=== PATIENT | female | born 1985 | race Caucasian/White ===

== ENCOUNTER 2021-09-20 22:25 | Emergency (ER) | payer MEDICAID ==
[2021-09-20] MEDS ORDERED: Clindamycin 150 MG CAP ONE (23:29)
[2021-09-21] MEDS ORDERED: Ibuprofen 800 MG TAB ONE (00:05)
[2021-09-21] MEDS ORDERED: traMADol HCl 50 MG TAB ONE (00:05)
== END 2021-09-21 00:19 | disposition home or self-care (01) ==
LOC: MADERS 22:25
DX: K04.7 Periapical abscess without sinus (principal); R51.9 Headache, unspecified; F17.210 Nicotine dependence, cigarettes, uncomplicated; Z79.899 Other long term (current) drug therapy
CPT/HCPCS: 99283